=== PATIENT | female | born 1990 | race Caucasian/White ===

== ENCOUNTER → 2016-05-17 | Outpatient (CLI) | payer OTHER | LOC: US 13:30 | DX: N63 Unspecified lump in breast (principal) | CPT/HCPCS: 76641-RT ==

== ENCOUNTER 2016-05-21 16:01 | Emergency (ER) | payer OTHER | END 2016-05-21 18:05 | disposition home or self-care (01) | LOC: ER1 16:01 | DX: S62.615A Displaced fracture of proximal phalanx of left ring finger, initial encounter for closed fracture (principal); S62.625A Displaced fracture of middle phalanx of left ring finger, initial encounter for closed fracture; F17.210 Nicotine dependence, cigarettes, uncomplicated; V86.99XA Unspecified occupant of other special all-terrain or other off-road motor vehicle injured in nontraffic accident, initial encounter; Y92.009 Unspecified place in unspecified non-institutional (private) residence as the place of occurrence of the external cause | CPT/HCPCS: 29130; 73130; 99283 ==

== ENCOUNTER 2020-03-20 14:31 | Emergency (ER) | payer OTHER ==
[~2020-03-20 14:31] MED LIST: COLACE 100MG C100 MG PO; IBUPROFEN600 MG PO
[2020-03-20] MEDS ORDERED: PERCOCET 5/325 T1 EA PO (21:05)
[2020-03-20] MEDS ORDERED: CLINDAMYCIN HC300 MG PO (21:06)
== END 2020-03-20 21:25 | disposition home or self-care (01) ==
LOC: ER1 14:31
DX: K03.81 Cracked tooth (principal)
CPT/HCPCS: 70487; 99283; Q9962; Q9963

== ENCOUNTER → 2021-01-13 | Outpatient (CLI) | payer OTHER ==
[~2021-01-13] MED LIST changes: +CLINDAMYCIN HC300 MG PO; +PERCOCET 5/325 T1 EA PO
== END ==
LOC: EROP 13:32
DX: Z20.822 Contact with and (suspected) exposure to COVID-19 (principal)
CPT/HCPCS: U0002